=== PATIENT | female | born 1935 | race Caucasian/White ===

== ENCOUNTER → 2018-02-14 | Outpatient (CLI) | payer OTHER ==
[~2018-02-14] MED LIST: ASPEC325 PO; CLB200 PO; HYDR-5688 PO; OPTIRAY 320 IV PRN
--- NOTE | 2018-02-14 11:52 | DIAGNOSTIC IMAGING REPORT ---
CT ABD/PELVIS IV AND ORAL CONT CLINICAL HISTORY: RECTAL MASS, DIARRHEA COMPARISON STUDY: None. TECHNIQUE: Following the IV administration of 90 mL of Optiray-320, CT scan of the abdomen and pelvis was performed from the lung bases to the proximal femurs. Images are reviewed in the axial, sagittal, and coronal planes. IV contrast was administered without complication. A dose lowering technique was utilized adhering to the principles of ALARA. CT DOSE: 376.68 mGy.cm FINDINGS: Lower chest: There are bilateral lower lobe pulmonary nodules. The largest on the left measures 13 mm. The largest on the right measures 13 mm. Given the history of a rectal mass, metastatic disease must be strongly considered. Liver: The contrast-enhanced liver is normal in size, contour, and attenuation. There is no intrahepatic biliary ductal dilatation. The hepatic veins and portal veins are patent. Gallbladder: Unremarkable. Spleen: Normal in size and attenuation. Pancreas: Unremarkable. Adrenal glands: Unremarkable. Kidneys: There is symmetric renal cortical enhancement. The kidneys are normal in size without hydronephrosis. Bowel: There are no transition zones indicate bowel obstruction. There is an eccentric rectal mass, which is difficult to measure. There is infiltration the perirectal fat. There is a low density collection within the left perirectal soft tissues. It cannot with certainty exclude a small perirectal abscess. There are enlarged lymph nodes in the perirectal fat the largest of which measures 35 x 15 mm. Peritoneum: There is no intraperitoneal free air or abdominal ascites. Vasculature: The abdominal aorta is normal in course and caliber. Adenopathy: There are enlarged perirectal lymph nodes suspicious for metastasis. Pelvic viscera: The bladder, and pelvic viscera are unremarkable. Skeletal structures: There is a right hip arthroplasty. There is a grade 1-2/4 spondylolisthesis of L4 on L5. No destructive bony lesions are visualized. IMPRESSION: 1. Large rectal mass with infiltration of the perirectal fat and perirectal nodularity is highly suspicious for carcinoma with metastatic involvement of perirectal lymph nodes 2. Bilateral pulmonary nodules. Given the rectal mass, these are viewed as suspicious for pulmonary metastasis Electronically signed by: Crispin Avila M.D. 02/14/2018 11:51 AM Dictated Date/Time: 02/14/2018 11:44 AM
== END | disposition home or self-care (01) ==
LOC: C.CTS 11:09
PROVIDERS: ATTEND Internal Medicine Gastroenterology
DX: R19.7 Diarrhea, unspecified (principal); K62.9 Disease of anus and rectum, unspecified; R91.8 Other nonspecific abnormal finding of lung field

== ENCOUNTER → 2018-02-17 | Outpatient (CLI) | payer OTHER ==
--- NOTE | 2018-02-17 12:58 | DIAGNOSTIC IMAGING REPORT ---
CT SCAN OF THE CHEST WITH IV CONTRAST CLINICAL HISTORY: Rectal carcinoma. COMPARISON STUDY: Chest x-ray dated 06/05/2014. TECHNIQUE: Following the IV administration of 95 cc of Optiray 320, CT scan of the thorax was performed from the thoracic inlet to the upper abdomen. Images are reviewed in the axial, sagittal, and coronal planes. IV contrast was administered without complication. A dose lowering technique was utilized adhering to the principles of ALARA. CT DOSE: 346.30 mGycm FINDINGS: Thyroid: Imaged portions of the thyroid gland are normal in size and attenuation. A subcentimeter low-attenuation nodule is noted in the right lobe. Thoracic aorta: The thoracic aorta is normal in caliber and demonstrates standard 3-vessel arch anatomy. No dissection is seen. Pulmonary vasculature: The pulmonary trunk is normal in caliber. There are no filling defects identified in the central pulmonary vessels to indicate pulmonary embolus. Note that this examination was not protocoled for evaluation of the pulmonary arteries. Heart: The heart is mildly enlarged and without pericardial effusion. Lungs and pleural spaces: There is no airspace consolidation or pleural effusion. The trachea and central airways are clear. There are least 4 pulmonary lesions that are highly concerning for metastatic disease. The largest in the right lung is seen in the lower lobe on image #131 and measures 1.6 cm. The largest in the left lung is in the lower lobe and measures 1.4 cm. Smaller lesions are seen in the right lower lobe on images #94 and #160. Mediastinum: There is no mediastinal lymphadenopathy. [place]: There is an enlarged left suprahilar lymph node. This measures 2.4 x 1.7 cm as seen on image #105. No right hilar adenopathy is seen. Axillae: There is no axillary lymphadenopathy. Upper abdomen: Parapelvic cysts are partially visualized in the left kidney. Partially visualized upper abdominal viscera is otherwise within normal limits. Skeletal structures: The skeletal structures are osteopenic. No lytic or blastic bony lesions are seen. Degenerative change and mild hyperkyphosis are noted in the thoracic spine. IMPRESSION: 1. There are at least 4 pulmonary lesions identified as detailed above. These are highly concerning for metastatic disease. 2. There is an enlarged left suprahilar lymph node which is also consistent with metastatic disease. 3. No airspace consolidation or pleural effusion is identified. 4. Cardiomegaly. 5. Additional findings as above. 2. Electronically signed by: Kaleb Ackerman M.D. 02/17/2018 12:56 PM Dictated Date/Time: 02/17/2018 12:50 PM
== END | disposition home or self-care (01) ==
LOC: C.CTS 12:29
PROVIDERS: ATTEND Internal Medicine Gastroenterology
DX: C20 Malignant neoplasm of rectum (principal); J98.4 Other disorders of lung; R59.0 Localized enlarged lymph nodes; I51.7 Cardiomegaly

== ENCOUNTER → 2018-03-02 | Outpatient (CLI) | payer OTHER ==
[~2018-03-02] MED LIST changes: +GADAVIST IV PRN; -OPTIRAY 320 IV PRN
--- NOTE | 2018-03-02 14:11 | DIAGNOSTIC IMAGING REPORT ---
PELVIC COMBO HISTORY: 82 years-old Female MALIGNANT NEOPLASM OF RECTUM patient was diagnosed 1 month prior with rectal carcinoma. Patient now complains of acute pelvic pain COMPARISON: CT abdomen and pelvis 02/14/2018 TECHNIQUE: Multiplanar multisequence MRI of the pelvis was obtained both with and without the use of 6.5 mL Gadavist. FINDINGS: Study is degraded by patient motion and artifact from right hip arthroplasty. 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 Decompressed urinary bladder. Uterus appears atrophic. There are several T2 hypointense lesions about the uterus, largest of which measures up to 1.2 cm within the right fundal uterus compatible with uterine leiomyomas. No adnexal mass lesions are identified. Soft tissues are unremarkable. Prominent subcortical cystic changes about the left femoral head with left hip osteoarthritis. There is an eccentric annular enhancing mass of the rectum with ill-defined margins, difficult to measure precisely secondary to aforementioned artifact and limitations overall measuring approximately 2.6 x 3.8 x 4.5 cm approximately 6.1 cm above the level of the anal verge as seen on image 14 series 4. There is transmural extension of the lesion through the left lateral rectal wall nicely seen on image 18 series 11 superiorly into the adjacent perirectal fat overall measuring up to 3.1 x 1.6 cm suggesting continuous tumor extension and/or bozena disease. Enlarged perirectal lymph nodes measure up to 1.0 x 0.8 mm on the right as seen on image 12 series 11 suggesting metastasis. There is infiltration of the adjacent perirectal fat. Peripherally enhancing T2 hyperintense lesion measuring 1.3 x 1.3 cm within the presacral tissues is noted on image 11 of series 12, non-FDG avid on PET/CT of same day. IMPRESSION: 1. Very limited exam secondary to motion and artifact from right hip arthroplasty. 2. Eccentric annular enhancing mass of the rectum with ill-defined margins measuring up to 4.5 cm, 6.1 cm above the anal verge. The mass demonstrates transmural extension through the left lateral rectal wall into the adjacent perirectal tissues with adjacent contiguous tumor extension and/or left perirectal node disease measuring over 3 cm in size as described above. 3. Infiltration of the perirectal fat with prominent right perirectal lymph nodes compatible with bozena spread of disease. 4. 10 mm T2 hyperintense peripherally enhancing structure of the central presacral tissues suggest a necrotic lymph node or small perirectal abscess, non-FDG avid on comparison PET CT of same day. The above report was generated using voice recognition software. It may contain grammatical, syntax or spelling errors. Electronically signed by: Toñito Young M.D. 03/02/2018 2:10 PM Dictated Date/Time: 03/02/2018 9:12 AM
== END | disposition home or self-care (01) ==
LOC: C.MRI 07:21
PROVIDERS: ATTEND Colon & Rectal Surgery
DX: C20 Malignant neoplasm of rectum (principal)

== ENCOUNTER → 2018-03-02 | Outpatient (CLI) | payer OTHER ==
[~2018-03-02] MED LIST changes: -GADAVIST IV PRN
--- NOTE | 2018-03-02 12:46 | DIAGNOSTIC IMAGING REPORT ---
PET/CT SKULL-THIGH CLINICAL HISTORY: 82 years-old Female with CP;PRECTAL CANCER. Initial treatment strategy in a patient with recently diagnosed rectal carcinoma. COMPARISON: CT abdomen and pelvis 02/14/2018, pelvic MRI 03/02/2018 TECHNIQUE: The patient was injected with 13.85 mCi of F-18 fluorodeoxyglucose (FDG) and an emission scan was performed from the skull vertex to the toes. Noncontrast CT was performed for attenuation correction and anatomic localization. The blood glucose level was 104 mg/dl. FINDINGS: HEAD AND NECK: There is a physiologic distribution of activity, with no hypermetabolic foci. CHEST: Enlarged malignant left hilar lymph node measures 2.6 x 1.5 cm on image 77 of series 2, SUV max of 9.3. No additional hypermetabolic lymph nodes identified. There is a hypermetabolic ovoid soft tissue attenuating metastatic nodule of the right lower lobe on image 90 series 2, SUV max of 5.3. Lobular soft tissue attenuating solid nodule of the basal left lower lobe on image 101 series 2 measures 1.4 x 0.8 cm, SUV max of 3.7. No additional hypermetabolic pulmonary nodules are identified. ABDOMEN AND PELVIS: There is a physiologic distribution of activity within the liver, spleen, adrenal glands, gastrointestinal and urinary tracts. There is an annular infiltrating mass of the rectum, several centimeters above the anal verge as described on MRI pelvis of same day measuring up to 2.7 x 4.0 cm on image 194 series 2, SUV max of 16.3. The mass appears to demonstrate transmural extension into the left perirectal tissues with tumor extension and/or conglomerate pathologic adenopathy within the left perirectal tissues measuring up to 4.0 x 2.0 cm on image 181 series 2, SUV max of 9.1. There is additional 10 mm focus of FDG activity, SUV max of 5.5 suggesting additional adjacent pathologic lymph node. Fluid attenuating 10 mm structure of the presacral tissues on image 183 series 2 suggests a small perirectal abscess as described on MRI pelvis of same day. There is infiltration of the perirectal fat. Mildly prominent 7 mm right iliac chain lymph node is mildly hypermetabolic with SUV max of 3.9, image 177 series 2. MUSCULOSKELETAL SYSTEM AND EXTREMITIES: There is a physiologic distribution of activity within the bone marrow, with no hypermetabolic foci. ADDITIONAL CT FINDINGS: Heterogeneous appearance of the thyroid. Normal-appearing 7 mm precarinal lymph node with fatty hilum. Trace pericardial effusion. Coronary arterial disease. 6 mm pleural-based solid nodule of the superior segment right lower lobe without significant hypermetabolic activity, indeterminate. No hepatic mass lesions identified. Mildly increased attenuation of the renal collecting systems. 5 mm hyperattenuating lesion of the superior pole left kidney, possibly reflecting a hemorrhagic or progression of cyst. Colonic diverticulosis with moderate stool volume throughout the colon. Soft tissues are unremarkable. No suspicious lytic or blastic bone lesions. Severe multilevel facet arthrosis. IMPRESSION: 1. Large annular infiltrating malignant rectal mass measuring up to at least 4 cm in size demonstrates transmural extension into the left perirectal tissues with tumor extension and/or conglomerate associated pathologic adenopathy as detailed above. Findings suggest primary colorectal carcinoma. 2. Pulmonary metastasis confirmed within the bilateral lower lobes with indeterminate pleural-based 6 mm nodule of the superior segment right lower lobe. 3. Malignant left hilar metastasis. 4. Nonenlarged mildly FDG avid right iliac chain lymph node is suspicious for metastasis as well. 5. No evidence of hepatic or osseous metastatic disease. 6. 10 mm fluid attenuating structure of the presacral tissues as described on MRI pelvis of same day suggests a small perirectal abscess. The above report was generated using voice recognition software. It may contain grammatical, syntax or spelling errors. Electronically signed by: Toñito Young M.D. 03/02/2018 12:45 PM Dictated Date/Time: 03/02/2018 12:19 PM
== END | disposition home or self-care (01) ==
LOC: C.PET 09:10
PROVIDERS: ATTEND Colon & Rectal Surgery
DX: C20 Malignant neoplasm of rectum (principal)

== ENCOUNTER → 2018-03-15 | Outpatient (CLI) | payer OTHER | END | disposition home or self-care (01) | LOC: C.CPL 14:15 | PROVIDERS: ATTEND Surgery | DX: C20 Malignant neoplasm of rectum (principal); Z01.818 Encounter for other preprocedural examination ==

== ENCOUNTER → 2018-05-12 | Outpatient (CLI) | payer OTHER ==
[~2018-05-12] MED LIST changes: -ASPEC325 PO; +CIPR-304 PO; -CLB200 PO; +GING1CAP PO; -HYDR-5688 PO; +IMD/2 PO; +OXYC-57 PO; +POTA10CA28 PO; +[UNRECOGNIZED DRUG - CODE] IV; +[UNRECOGNIZED DRUG - CODE] IV
[2018-05-12 11:15] LABS: BASO % 0.2 %; BASO ABS # 0.02 K/uL (0-0.2); EOS % 0.6 %; EOS ABS # 0.05 K/uL (0-0.5); HEMATOCRIT 33.7 % (37-47); HEMOGLOBIN 11.4 g/dL (12.0-16.0); IG# 0.02 K/uL (0.00-0.02); LYMPH % 11.3 %; LYMPH ABS # 0.99 K/uL (1.2-3.4); MEAN CELL VOLUME 86.9 fL (80-100); MEAN CORPUSCULAR HEMOGLOBIN 29.4 pg (25-34); MEAN CORPUSCULAR HGB CONC 33.8 g/dl (32-36); MEAN PLATELET VOLUME 9.3 fL (7.4-10.4); MONO % 13.6 %; MONO ABS # 1.19 K/uL (0.11-0.59); NEUT % 74.1 %; PLATELET COUNT 204 K/uL (130-400); RED CELL DISTRIBUTION WIDTH CV 13.6 % (11.5-14.5); WHITE BLOOD COUNT 8.77 K/uL (4.8-10.8)
[2018-05-12 11:37] LABS: ALBUMIN 3.1 gm/dl (3.4-5.0); ALKALINE PHOSPHATASE 58 U/L (45-117); ALT/SGPT 32 U/L (12-78); AST/SGOT 31 U/L (15-37); BLOOD UREA NITROGEN 17 mg/dl (7-18); CARBON DIOXIDE 23 mmol/L (21-32); CREATININE 0.96 mg/dl (0.60-1.20); GLUCOSE 131 mg/dl (70-99); POTASSIUM 3.6 mmol/L (3.5-5.1); SODIUM 136 mmol/L (136-145); TOTAL PROTEIN 6.6 gm/dl (6.4-8.2)
== END | disposition home or self-care (01) ==
LOC: C.LABSPEC 10:45
PROVIDERS: ATTEND Internal Medicine Hematology & Oncology
DX: C20 Malignant neoplasm of rectum (principal)

== ENCOUNTER 2018-05-15 08:19 | Emergency (ER) | payer OTHER ==
[~2018-05-15] VITALS: Ht 162.6 cm; Wt 66.0 kg
[~2018-05-15 08:19] MED LIST changes: -CIPR-304 PO; -IMD/2 PO; -POTA10CA28 PO; -[UNRECOGNIZED DRUG - CODE] IV; -[UNRECOGNIZED DRUG - CODE] IV
[2018-05-15 08:26] VITALS: TEMP 36.6; Ht 162.6 cm; Wt 66.0 kg
[2018-05-15] MEDS ORDERED: SODIUM CHLORIDE 0.9% 1000ML 1,000 ML IV STA (08:51)
[2018-05-15] MEDS ORDERED: [UNRECOGNIZED DRUG - CODE] IV (08:56)
[2018-05-15] MEDS ORDERED: [UNRECOGNIZED DRUG - CODE] IV (08:56)
[2018-05-15] MEDS ORDERED: CIPR-304 PO (08:56)
[2018-05-15] MEDS ORDERED: IMD/2 PO (08:58)
[2018-05-15 09:01] LABS: BASO % 0.1 %; BASO ABS # 0.01 K/uL (0-0.2); EOS % 0.1 %; EOS ABS # 0.02 K/uL (0-0.5); HEMOGLOBIN 10.4 g/dL (12.0-16.0); IG# 0.04 K/uL (0.00-0.02); LYMPH ABS # 1.29 K/uL (1.2-3.4); MEAN CELL VOLUME 86.5 fL (80-100); MEAN CORPUSCULAR HGB CONC 34.7 g/dl (32-36); MEAN PLATELET VOLUME 9.7 fL (7.4-10.4); MONO % 10.2 %; MONO ABS # 1.46 K/uL (0.11-0.59); NEUT % 80.3 %; NEUT ABS # 11.45 K/uL (1.4-6.5); PLATELET COUNT 185 K/uL (130-400); RED CELL DISTRIBUTION WIDTH CV 13.6 % (11.5-14.5); RED CELL DISTRIBUTION WIDTH SD 42.9 fL (36.4-46.3); WHITE BLOOD COUNT 14.27 K/uL (4.8-10.8)
[2018-05-15 09:21] LABS: ALBUMIN 2.7 gm/dl (3.4-5.0); CALCIUM 8.2 mg/dl (8.5-10.1); CREATININE 0.78 mg/dl (0.60-1.20); POTASSIUM 2.9 mmol/L (3.5-5.1); TOTAL PROTEIN 6.6 gm/dl (6.4-8.2)
[2018-05-15] MEDS ORDERED: POTASSIUM CHLR 20 MEQ / WTR 20 MEQ IV STA (09:45)
--- NOTE | 2018-05-15 09:47 | DIAGNOSTIC IMAGING REPORT ---
ABDOMEN 2VIEW W/PA CHEST RTN HISTORY: 83 years-old Female diarrhea acute diarrhea COMPARISON: Chest radiograph 04/07/2018 TECHNIQUE: PA view of the chest with erect and supine views of the abdomen FINDINGS: Cardiomediastinal and hilar silhouettes are within normal limits. Left subclavian [id number] catheter is unchanged. 2.3 cm masslike nodule of the right infrahilar lung redemonstrated with appears mildly enlarged. No pneumothorax, pleural effusion or overt pulmonary edema. Bones of the chest appear grossly intact. No bowel obstruction, pneumatosis or pneumoperitoneum. There are multiple air-fluid levels noted throughout the colon. No definite urolith. Right hip arthroplasty. Severe left hip posterior arthritis. Calcifications of the pelvis are noted. IMPRESSION: 1. Right infrahilar nodule compatible with patient's known metastatic disease appears slightly increased in size from comparison. 2. Nonobstructive bowel gas pattern. 3. Multiple air-fluid levels throughout the colon suggest diarrheal illness. The above report was generated using voice recognition software. It may contain grammatical, syntax or spelling errors. Electronically signed by: Toñito Young M.D. 05/15/2018 9:46 AM Dictated Date/Time: 05/15/2018 9:43 AM
[2018-05-15] MEDS: POTASSIUM CHLR 10 MEQ / WTR 100 ML IV SCH ×2 (10:00→11:05)
[2018-05-15] MEDS ORDERED: POTA10CA28 PO ×2 (13:07→13:18)
[2018-05-15 13:51] VITALS: BP 127/84; PULSE 56; O2SAT 96
--- NOTE | 2018-05-15 17:05 | EMERGENCY ROOM VISIT NOTE ---
ED Visit Note First contact with patient: 08:34 I reviewed the patient's past medical history, medications, and visit nursing notes. I discussed the case with the physician assistant professor of english, examined the patient, and agree with the findings and plan as documented in the physician assistants note.
--- NOTE | 2018-05-24 18:42 | EMERGENCY ROOM VISIT NOTE ---
History First contact with patient: 08:46 Chief Complaint: DIARRHEA Stated Complaint: DIARHEA, DEHYDRATION Nursing Triage Summary: patient has had diarrhea for the past several days. patient is taking chemo for rectal CA. patient denies any pain in abdomen today. was in the clinic on and hydrated with iv fluids. patient has had continued diarrhea since and "has not been able to keep up with the fluids" patient has hyperactive bowel sounds. History of Present Illness The patient is an 83 year old white female who presents to the Emergency Room with complaints of persisting diarrhea for the last 4 days. Symptoms started Wednesday. She was seen by her PCP on and was hydrated with 1 L of IV fluid. Diarrhea has continued and Wednesday. She typically has multiple episodes in the morning and then has no further episodes throughout the day. Her daughter accompanies her today and is concerned about dehydration. The patient has not been able to drink very much to keep up with the amount of fluid she is losing. She denies any nausea or vomiting. She states she has not been able to retain fluids. She is drinking. No abdominal pain. No known ill contacts. No new or unusual foods or medications. She is receiving chemotherapy for her rectal cancer. Review of Systems REVIEW OF SYSTEM: HEENT: No dizziness, visual problems, hearing loss, or tinnitus. There is no difficulty swallowing and no oral lesions are present. PULMONARY: No cough, shortness of breath, sputum production or hemoptysis. CARDIOVASCULAR: No chest pain, palpitations, shortness of breath or peripheral edema. GASTROINTESTINAL: Positive diarrhea. No constipation, nausea, vomiting, or abdominal pain. GENITOURINARY: No dysuria, frequency, urgency or nocturia. NEUROLOGIC: No weakness, muscle tenderness, epilepsy or history of neurological problems. MUSCULOSKELETAL: No history of joint tenderness/swelling. Positive history of arthritis and arthralgias. SKIN: No rashes or lesions. PSYCHIATRIC: No history of depression or mental illness. ENDOCRINE: No history of diabetes, thyroid disorders, or abnormal hair growth. Past Medical/Surgical History Previous surgeries: Right knee arthroscopy, right total knee arthroplasty, right hip total hip arthroplasty Medical history: Significant for osteoarthritis, osteoarthrosis, and rectal cancer Family History Noncontributory. Parents are . Social History Smoking Status: Never Smoker Smokeless Tobacco Use: No Alcohol Use: none Drug Use: none Marital Status: Housing Status: lives with family Occupation Status: retired Current/Historical Medications Scheduled Ciprofloxacin HCl (Ciprofloxacin), 500 MG PO Q12 Cisplatin (Cisplatin), IV UD Fluorouracil (Fluorouracil), Unknown Dose IV UD Potassium Chloride (Micro-K Ext Rel), 20 MEQ PO DAILY Scheduled PRN Loperamide Hcl (Imodium), 2 MG PO UD PRN for Diarrhea Physical Exam Vital Signs Date Time Temp Pulse Resp B/P (MAP) Pulse Ox O2 Delivery O2 Flow Rate FiO2 05/15/18 13:51 56 16 127/84 96 05/15/18 13:18 68 18 126/66 96 Room Air 05/15/18 12:30 56 16 114/65 96 Room Air 05/15/18 10:36 60 16 113/64 95 Room Air 05/15/18 09:45 62 16 107/62 95 Room Air 05/15/18 08:59 60 05/15/18 08:54 63 16 92/60 95 Room Air 05/15/18 08:26 36.6 68 18 101/65 97 Room Air Physical Exam General: White female, in no acute distress. Laying on a bed. Alert and oriented. Skin: Warm and dry with good turgor. No rashes or lesions. No ecchymosis or erythema. The patient is not diaphoretic. No abrasions. HEENT: Normocephalic atraumatic. Eyes PERRLA, EOMI. No conjunctiva or scleral injection. Ears TMs intact bilaterally with good light reflexes. No erythema or bulging. No hemotympanum. Canals are patent. Nares patent bilaterally without turbinate enlargement. No significant drainage. No epistaxis. Oropharynx without erythema or exudate. Uvula midline, oral mucosa moist. No lesions present. Heart: Heart RRR. No MGR. Peripheral pulses are 2+. Lungs: Lungs are clear to auscultation. No crackles rhonchi or wheezing. Good air movement. The patient is able to take a deep breath. Abdomen: Abdomen was inspected, auscultated, and palpated. Bowel sounds present x 4. Hyperactive. Soft, nontender to palpation. No hepato- splenomegaly. No masses noted. No rebound. No pain over McBurney's point. No CVA tenderness. Musculoskeletal: Gross motor function of the upper and lower extremities is intact and unremarkable. Neurologic: Gross sensation is intact across the upper and lower extremities by soft touch. Medical Decision & Procedures Laboratory Results 05/15/18 08:45 Red Blood Count 3.47, Mean Corpuscular Volume 86.5, Mean Corpuscular Hemoglobin 30.0, Mean Corpuscular Hemoglobin Concent 34.7, Mean Platelet Volume 9.7, Neutrophils (%) (Auto) 80.3, Lymphocytes (%) (Auto) 9.0, Monocytes (%) (Auto) 10.2, Eosinophils (%) (Auto) 0.1, Basophils (%) (Auto) 0.1, Neutrophils # (Auto ) 11.45, Lymphocytes # (Auto) 1.29, Monocytes # (Auto) 1.46, Eosinophils # (Auto ) 0.02, Basophils # (Auto) 0.01 05/15/18 08:45 Test 05/15/18 08:45 05/15/18 09:40 White Blood Count 14.27 K/uL (4.8-10.8) Red Blood Count 3.47 M/uL (4.2-5.4) Hemoglobin 10.4 g/dL (12.0-16.0) Hematocrit 30.0 % (37-47) Mean Corpuscular Volume 86.5 fL (80-100) Mean Corpuscular Hemoglobin 30.0 pg (25-34) Mean Corpuscular Hemoglobin Concent 34.7 g/dl (32-36) Platelet Count 185 K/uL (130-400) Mean Platelet Volume 9.7 fL (7.4-10.4) Neutrophils (%) (Auto) 80.3 % Lymphocytes (%) (Auto) 9.0 % Monocytes (%) (Auto) 10.2 % Eosinophils (%) (Auto) 0.1 % Basophils (%) (Auto) 0.1 % Neutrophils # (Auto) 11.45 K/uL (1.4-6.5) Lymphocytes # (Auto) 1.29 K/uL (1.2-3.4) Monocytes # (Auto) 1.46 K/uL (0.11-0.59) Eosinophils # (Auto) 0.02 K/uL (0-0.5) Basophils # (Auto) 0.01 K/uL (0-0.2) RDW Standard Deviation 42.9 fL (36.4-46.3) RDW Coefficient of Variation 13.6 % (11.5-14.5) Immature Granulocyte % (Auto) 0.3 % Immature Granulocyte # (Auto) 0.04 K/uL (0.00-0.02) Anion Gap 8.0 mmol/L (3-11) Est Creatinine Clear Calc Drug Dose 52.0 ml/min Estimated GFR () 82.1 Estimated GFR (Non- 70.8 BUN/Creatinine Ratio 20.0 (10-20) Calcium Level 8.2 mg/dl (8.5-10.1) Magnesium Level 1.8 mg/dl (1.8-2.4) Total Bilirubin 0.6 mg/dl (0.2-1) Aspartate Amino Transf (AST/SGOT) 18 U/L (15-37) Alanine Aminotransferase (ALT/SGPT) 19 U/L (12-78) Alkaline Phosphatase 69 U/L (45-117) Total Protein 6.6 gm/dl (6.4-8.2) Albumin 2.7 gm/dl (3.4-5.0) Globulin 3.9 gm/dl (2.5-4.0) Albumin/Globulin Ratio 0.7 (0.9-2) Urine Color DK YELLOW Urine Appearance CLOUDY (CLEAR) Urine pH 5.5 (4.5-7.5) Urine Specific [place] 1.021 (1.000-1.030) Urine Protein 2+ (NEG) Urine Glucose (UA) NEG (NEG) Urine Ketones TRACE (NEG) Urine Occult Blood 1+ (NEG) Urine Nitrite NEG (NEG) Urine Bilirubin 1+ (NEG) Urine Urobilinogen NEG (NEG) Urine Leukocyte Esterase NEG (NEG) Urine WBC (Auto) 10-30 /hpf (0-5) Urine RBC (Auto) 0-4 /hpf (0-4) Urine Hyaline Casts (Auto) 1-5 /lpf (0-5) Urine Epithelial Cells (Auto) >30 /lpf (0-5) Urine Bacteria (Auto) NEG (NEG) Urine Renal Epithelial Cells /lpf (0-5) Urine Pathogenic Casts 1-5 WBC CASTS /lpf (0) Urine Yeast (Auto) (NONE PRSENT) Date/Time Source Procedure Growth Status 05/15/18 09:40 Urine,Catheterized Urine Culture - Final NO GROWTH - LESS THAN 1,000 COLONIES/ML Complete CBC, chemistry panel, and UA cath sample were obtained. Mild elevation in WBCs at 14.2. Mild anemia with an H&H of 10 and 30. Sodium 134. Potassium low at 2.9. Urine will be sent for culture. Medications Administered Medications (Trade) Dose Ordered Sig/Jose Rafael Route Start Time Stop Time Status Last Admin Dose Admin Sodium Chloride 1,000 ml @ 250 mls/hr Q4H STAT IV 05/15/18 08:51 05/15/18 12:50 DC 05/15/18 08:51 250 MLS/HR Potassium Chloride 100 ml @ 100 mls/hr TODAY@1000,1100 IV 05/15/18 10:00 05/15/18 12:00 DC 05/15/18 11:05 100 MLS/HR Heparin Sodium (Porcine) (Heparin 100 Unit/ml 5ml Flush) 5 ml STK-MED ONCE .ROUTE 05/15/18 13:44 05/15/18 13:45 DC 05/15/18 13:44 5 ML 1 L normal sterile saline at 250 mL/h. Potassium 10 MEQ IV ED Course Patient and her daughter were educated regarding today's findings. Conservative care measures were discussed. IV was established. Labs were obtained. She was hydrated gently using 1 L normal sterile saline IV. Patient had no episodes of diarrhea while in the ED. Follow-up with her PCP this week for further examination. Lab values were discussed. She is low in potassium. She will likely need supplementation in her diet. Mild elevation in WBCs is likely related to her diarrhea and chemotherapy. Anemia is also likely related to her chemotherapy. Saline at 250 mL/h. She did receive a full liter. Potassium was also supplemented with 10meq IV. Prescription was provided for potassium 20meq to be used 2 tablets daily today and tomorrow. Follow-up with her oncologist on Wednesday as scheduled. Return to the ED sooner for any acute worsening of symptoms. Maintain hydration. She may also use Imodium after every loose stool. Urine sample was sent for culture. She will be notified of any abnormal growth. Patient was seen in conjunction with Dr. Le, who also evaluated the patient and concurred with today's diagnosis and treatment plan. Medical Decision Possibility of gastroenteritis, foodborne illness, medication reaction, chemotherapy reaction, bowel obstruction, dehydration, and colitis were considered. Medication Reconcilliation Current Medication List: was personally reviewed by me Blood Pressure Screening Patient's blood pressure: Normal blood pressure Impression Primary Impression: Diarrhea in adult patient Additional Impression: Hypokalemia Departure Information Dispostion Home / Self-Care Condition GOOD Prescriptions Potassium Chloride (Micro-K Ext Rel) 10 Meq Capcr 20 MEQ PO DAILY, #4 CAP Prov: Chente Ledezma,P.A. 05/15/18 Referrals Evens Atkinson MD Forms WORK / SCHOOL INSTRUCTIONS, HOME CARE DOCUMENTATION FORM, IMPORTANT VISIT INFORMATION Patient Instructions Diarrhea, My [facility] [employer] Additional Instructions Maintain hydration Take potassium 2 tablet daily 2 days Follow-up with your oncologist on Wednesday as scheduled Return to the ED for any acute worsening of symptoms Continue to use Imodium after every loose stool Problem Qualifiers
== END 2018-05-15 14:04 | disposition home or self-care (01) ==
LOC: C.EDB 08:20
DX: R19.7 Diarrhea, unspecified (principal); E87.6 Hypokalemia; C20 Malignant neoplasm of rectum; D64.9 Anemia, unspecified

== ENCOUNTER → 2018-05-18 | Outpatient (CLI) | payer OTHER ==
[~2018-05-18] MED LIST changes: +CIPR-304 PO; -GING1CAP PO; +IMD/2 PO; -OXYC-57 PO; +POTA10CA28 PO; +[UNRECOGNIZED DRUG - CODE] IV; +[UNRECOGNIZED DRUG - CODE] IV
[2018-05-18 09:26] LABS: BASO % 0.9 %; BASO ABS # 0.04 K/uL (0-0.2); EOS % 3.3 %; EOS ABS # 0.15 K/uL (0-0.5); HEMATOCRIT 30.8 % (37-47); HEMOGLOBIN 10.3 g/dL (12.0-16.0); IG# 0.02 K/uL (0.00-0.02); LYMPH % 30.4 %; MEAN CELL VOLUME 87.3 fL (80-100); MEAN CORPUSCULAR HEMOGLOBIN 29.2 pg (25-34); MEAN CORPUSCULAR HGB CONC 33.4 g/dl (32-36); MEAN PLATELET VOLUME 9.1 fL (7.4-10.4); MONO % 20.6 %; MONO ABS # 0.95 K/uL (0.11-0.59); NEUT % 44.4 %; NEUT ABS # 2.05 K/uL (1.4-6.5); PLATELET COUNT 231 K/uL (130-400); RED CELL DISTRIBUTION WIDTH CV 13.7 % (11.5-14.5); RED CELL DISTRIBUTION WIDTH SD 43.5 fL (36.4-46.3); WHITE BLOOD COUNT 4.61 K/uL (4.8-10.8)
[2018-05-18 09:50] LABS: ALBUMIN 2.6 gm/dl (3.4-5.0); ALKALINE PHOSPHATASE 75 U/L (45-117); ALT/SGPT 38 U/L (12-78); AST/SGOT 36 U/L (15-37); BLOOD UREA NITROGEN 7 mg/dl (7-18); CALCIUM 8.4 mg/dl (8.5-10.1); CARBON DIOXIDE 27 mmol/L (21-32); CREATININE 0.62 mg/dl (0.60-1.20); GLUCOSE 91 mg/dl (70-99); POTASSIUM 3.6 mmol/L (3.5-5.1); SODIUM 141 mmol/L (136-145); TOTAL PROTEIN 6.6 gm/dl (6.4-8.2)
== END | disposition home or self-care (01) ==
LOC: C.LABSPEC 09:18
PROVIDERS: ATTEND Internal Medicine Hematology & Oncology
DX: C20 Malignant neoplasm of rectum (principal)

== ENCOUNTER → 2018-05-25 | Outpatient (CLI) | payer OTHER ==
[2018-05-25 08:45] LABS: BASO % 0.8 %; BASO ABS # 0.05 K/uL (0-0.2); EOS % 2.2 %; EOS ABS # 0.14 K/uL (0-0.5); HEMOGLOBIN 11.5 g/dL (12.0-16.0); IG# 0.05 K/uL (0.00-0.02); LYMPH % 40.1 %; MEAN CELL VOLUME 89.3 fL (80-100); MEAN CORPUSCULAR HEMOGLOBIN 28.5 pg (25-34); MEAN CORPUSCULAR HGB CONC 31.9 g/dl (32-36); MEAN PLATELET VOLUME 8.5 fL (7.4-10.4); MONO % 11.7 %; MONO ABS # 0.76 K/uL (0.11-0.59); NEUT % 44.4 %; NEUT ABS # 2.89 K/uL (1.4-6.5); PLATELET COUNT 355 K/uL (130-400); RED CELL DISTRIBUTION WIDTH CV 14.4 % (11.5-14.5); RED CELL DISTRIBUTION WIDTH SD 46.6 fL (36.4-46.3); WHITE BLOOD COUNT 6.49 K/uL (4.8-10.8)
[2018-05-25 09:03] LABS: ALBUMIN 3.1 gm/dl (3.4-5.0); ALT/SGPT 19 U/L (12-78); AST/SGOT 20 U/L (15-37); BLOOD UREA NITROGEN 11 mg/dl (7-18); CALCIUM 8.9 mg/dl (8.5-10.1); CARBON DIOXIDE 30 mmol/L (21-32); CREATININE 0.75 mg/dl (0.60-1.20); GLUCOSE 83 mg/dl (70-99); POTASSIUM 4.1 mmol/L (3.5-5.1); SODIUM 140 mmol/L (136-145)
[2018-05-25 09:05] LABS: ALKALINE PHOSPHATASE 78 U/L (45-117); TOTAL PROTEIN 6.9 gm/dl (6.4-8.2)
== END | disposition home or self-care (01) ==
LOC: C.LABSPEC 08:31
PROVIDERS: ATTEND Internal Medicine Hematology & Oncology
DX: C20 Malignant neoplasm of rectum (principal)

== ENCOUNTER → 2018-06-08 | Outpatient (CLI) | payer OTHER ==
[2018-06-08 09:47] LABS: BASO % 0.5 %; BASO ABS # 0.02 K/uL (0-0.2); EOS % 6.9 %; EOS ABS # 0.28 K/uL (0-0.5); HEMATOCRIT 32.6 % (37-47); HEMOGLOBIN 10.7 g/dL (12.0-16.0); LYMPH % 39.5 %; LYMPH ABS # 1.61 K/uL (1.2-3.4); MEAN CELL VOLUME 88.3 fL (80-100); MEAN CORPUSCULAR HGB CONC 32.8 g/dl (32-36); MONO % 11.5 %; MONO ABS # 0.47 K/uL (0.11-0.59); NEUT % 41.6 %; PLATELET COUNT 116 K/uL (130-400); RED CELL DISTRIBUTION WIDTH CV 15.5 % (11.5-14.5); RED CELL DISTRIBUTION WIDTH SD 48.1 fL (36.4-46.3); WHITE BLOOD COUNT 4.08 K/uL (4.8-10.8)
[2018-06-08 10:35] LABS: ALBUMIN 3.1 gm/dl (3.4-5.0); ALKALINE PHOSPHATASE 73 U/L (45-117); ALT/SGPT 33 U/L (12-78); AST/SGOT 47 U/L (15-37); BLOOD UREA NITROGEN 14 mg/dl (7-18); CALCIUM 8.7 mg/dl (8.5-10.1); CARBON DIOXIDE 26 mmol/L (21-32); CREATININE 0.76 mg/dl (0.60-1.20); GLUCOSE 86 mg/dl (70-99); POTASSIUM 3.8 mmol/L (3.5-5.1); SODIUM 140 mmol/L (136-145); TOTAL PROTEIN 6.6 gm/dl (6.4-8.2)
== END | disposition home or self-care (01) ==
LOC: C.LABSPEC 09:34
PROVIDERS: ATTEND Internal Medicine Hematology & Oncology
DX: C20 Malignant neoplasm of rectum (principal)